=== PATIENT | male | born 1990 | race Two or more races ===

== ENCOUNTER 2016-10-23 19:25 | Emergency (ER) | payer MEDICAID ==
[~2016-10-23] VITALS: Ht 190.5 cm; Wt 72.6 kg
[2016-10-23] MEDS ORDERED: NKM (19:41)
--- NOTE | 2016-10-23 19:47 | Emergency Room Report ---
History of Present Illness General Chief Complaint: Lower Extremity Injury Source: Patient Present Illness HPI 26YOM with right wrist drop s/p trip and fall while hiking 5 days ago. Landed on dorsum of wrist. Not c/o any pain. Denies pain to hand, forearm, elbow, shoulder. Denies other injuries or medical problems. Allergies: Coded Allergies: No Known Allergies (Unverified , 10/23/16) Patient History Past Medical History: none Past Surgical History: none Pertinent Family History: none Social History: Denies: alcohol use, drug use, smoking Immunizations: UTD Reviewed Nursing Documentation: PMH: Agreed, PSxH: Agreed Nursing Documentation-PMH Past Medical History: No Stated History Review of Systems All Other Systems: negative except mentioned in HPI Physical Exam Vital Signs Date Time Temp Pulse Resp B/P Pulse Ox O2 Delivery O2 Flow Rate FiO2 10/23/16 19:35 98.2 89 16 140/86 98 Room Air Sp02 EP Interpretation: reviewed, normal General Appearance: normal inspection, well appearing, no apparent distress, alert Head: atraumatic ENT: normal ENT inspection, hearing grossly normal, normal voice Neck: normal inspection, full range of motion, supple, no bony tend Respiratory: normal inspection, lungs clear, normal breath sounds, no respiratory distress, no retraction, no wheezing Cardiovascular #1: regular rate, rhythm, no edema Gastrointestinal: normal inspection, normal bowel sounds, non tender, soft, no guarding, no hernia Genitourinary: no CVA tenderness Neurologic: normal inspection, alert, oriented x3, responsive, 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, motor strength/tone normal, speech normal Psychiatric: normal inspection, judgement/insight normal, mood/affect normal Skin: normal inspection, normal color, no rash Lymphatic: normal inspection Procedures Splinting Splinting : Consent: Verbal Hand-Made Type: plaster Splint: volar Pre-Proc Neuro Vasc Exam: normal Post-Proc Neuro Vasc Exam: normal Patient Tolerated: Well Complications: None Medical Decision Making Diagnostic Impression: Primary Impression: Right wrist drop ER Course No acute fx on official review of right wrist xray No pain so low suspicion of occult fx especially since fall was 5 days prior Will splint right wrist in extension d/t drop with PMD followup DC home Last Vital Signs Date Time Temp Pulse Resp B/P Pulse Ox O2 Delivery O2 Flow Rate FiO2 10/23/16 19:35 98.2 89 16 140/86 98 Room Air Status: improved Disposition: HOME, SELF-CARE ZENON HOPSON M.D. October 23, 2016 19:47
[2016-10-23 20:49] VITALS: BP 126/80
--- NOTE | 2016-10-24 11:32 | Diagnostic Imaging Report ---
Clinical Indication:PAIN, injury, status post fall Technique: 3 views of the right wrist Comparison: None Findings: No acute fractures. No dislocations. Joint spaces are preserved Impression: Negative This agrees with the preliminary interpretation provided overnight by Dr. Britton
== END 2016-10-23 20:52 | disposition home or self-care (01) ==
LOC: EMR 19:51
DX: M21.331 Wrist drop, right wrist (principal)
CPT/HCPCS: 29125; 99283